=== PATIENT | female | born 1965 | race Caucasian/White ===

== ENCOUNTER → 2017-03-29 | Outpatient (CLI) | payer OTHER ==
--- NOTE | ~2017-03-29 | CR229 ---
[facility] A Service of [facility] & [facility] RADIOLOGY TEXT RESULTS PATIENT: HOWARD LIZARRAGA LOCATION: [facility] : 65 UNIT #: [id number] AGE: [address]: VENICE DA SILVA APR SEX: F ORDER DR: [id number] [place] [address] [place], [place] [address] [id number] O MR#: [id number] Acc #: [id number] NAME: HOWARD LIZARRAGA : 1965 SEX: F STUDY DATE/TIME: 03/29/2017 13:22 UNIT: [facility] ROOM: STUDY DESCRIPTION: CR Shoulder Min 2 View Lt Attending Physician: Venice Da Silva Aprn Referring Physician: Venice Da Silva Aprn Ordering Physician: Venice Da Silva Aprn Primary Care Physician: Venice Da Silva Aprn MEDICAL IMAGING REPORT This report is preliminary unless electronic signature is present EXAM Left shoulder, 3 views, 03/29/2017. HISTORY Left shoulder pain for 5 months with no known injury. FINDINGS AP view with internal and external rotation of the shoulder girdle shows satisfactory relationship of the humeral head and glenoid fossa. The joint space is normal. There is no identifiable fracture or dislocation or bony destructive process about the shoulder girdle anatomy. The acromioclavicular joint is normal. There is no radiopaque foreign body in the region. IMPRESSION Normal shoulder. Dictated by... Alberto Segura M.D. THIS IS AN ELECTRONICALLY VERIFIED REPORT Alberto Segura M.D. at 03/30/2017 2:13 PM ELIZABETH/diana TD: 03/29/2017 21:34 JOB #: [id number] MEDICAL IMAGING REPORT Page 1 of 1 COPY
== END | disposition home or self-care (01) ==
LOC: CRAD 12:20
DX: M25.512 Pain in left shoulder (principal)
CPT/HCPCS: 73030

== ENCOUNTER → 2017-07-28 | Outpatient (CLI) | payer OTHER ==
--- NOTE | ~2017-07-28 | MR164 ---
[facility] A Service of [facility] & [facility] RADIOLOGY TEXT RESULTS PATIENT: HOWARD LIZARRAGA LOCATION: [facility] : 65 UNIT #: [id number] AGE: [address]: Asim Pierce MD SEX: F ORDER DR: [id number] [facility] [address] [place], [place] [address] [id number] O MR#: [id number] Acc #: [id number] NAME: HOWARD LIZARRAGA : 1965 SEX: F STUDY DATE/TIME: 07/28/2017 9:04 UNIT: [facility] ROOM: STUDY DESCRIPTION: MR Shoulder Wo Contrast Lt Attending Physician: Asim Pierce M.D. Referring Physician: Asim Pierce M.D. Ordering Physician: Asim Pierce M.D. Primary Care Physician: Charmaine Da Silva Aprn MRI CENTER REPORT This report is preliminary unless electronic signature is present. EXAM MRI left shoulder 07/28/2017. COMPARISON Left shoulder radiographs 03/29/2017. HISTORY Order states: Rotator cuff tendinitis. Rule out cuff tear. History sheet states: Left shoulder pain for 2 years with no known injury. Painful to use shoulder or reach backwards. No surgery. Diabetic. FINDINGS There is moderate hypertrophic AC joint arthrosis with capsuloligamentous thickening, moderate articular irregularity, and mild osteophyte formation. There is intraarticular and periarticular AC joint inflammation as well as subarticular marrow edema. Subarticular cystic changes are noted of the acromion and the clavicle. The appearance could be seen with a primary inflammatory arthropathy or arthrosis with inflammatory component, such as due to repetitive stress or overuse. Coracoacromial and coracoclavicular ligaments are intact. There is moderate supraspinatus and mild infraspinatus tendinosis without a tear. There is mild cystic enthesopathic change of the greater tuberosity. There is mild diffuse subscapularis tendinosis. Patient has a somewhat prominent laterally projecting coracoid process with a coracohumeral dimension of approximately 10 mm, which is at the lower limits of normal. Correlate for any clinical evidence of subcoracoid impingement. Teres minor tendon and rotator cuff muscles are normal. [facility] A Service of [facility] & [facility] RADIOLOGY TEXT RESULTS PATIENT: HOWARD LIZARRAGA LOCATION: [facility] : 65 UNIT #: [id number] AGE: [address]: Asim Pierce MD SEX: F ORDER DR: Biceps anchor, biceps tendon, and glenoid labrum are within normal limits. There is minimal inflammation in the anterior interval and equivocal superior capsular inflammation. Findings are nonspecific but could be seen with capsulitis. There is mild inflammation in the subacromial-subdeltoid bursa and a small amount of fluid in the subcoracoid bursa. There is no marrow lesion, fracture, or loose body. Glenohumeral articular cartilage is unremarkable. IMPRESSION 1. 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 See above discussion. 2. Moderate supraspinatus and mild infraspinatus tendinosis without a tear. 3. Diffuse subscapularis mild tendinosis with borderline decrease in coracohumeral distance. Correlate for any clinical evidence of subcoracoid impingement. There is no subscapularis tendon tear. 4. Subacromial-subdeltoid bursal inflammation and mild subcoracoid bursal fluid. Correlate for symptomatic bursitis. 5. Mild inflammation anterior interval and equivocal inflammation superior glenohumeral joint capsule is indeterminant but raises the possibility of capsulitis. 6. Biceps and labrum are unremarkable. Dictated by... Christa Lynn M.D. THIS IS AN ELECTRONICALLY VERIFIED REPORT Christa Lynn M.D. at 07/29/2017 1:22 PM [facility]/diana TD: 07/29/2017 12:39 JOB #: [id number] MRI CENTER REPORT Page 1 of 1 COPY
== END | disposition home or self-care (01) ==
LOC: CMRI 08:30
DX: M75.82 Other shoulder lesions, left shoulder (principal); M19.012 Primary osteoarthritis, left shoulder; M75.52 Bursitis of left shoulder
CPT/HCPCS: 73221